=== PATIENT | male | born 1985 | race Caucasian/White ===

== ENCOUNTER → 2021-09-24 | Outpatient (CLI) | payer OTHER ==
--- NOTE | 2021-09-25 12:36 | KCIC ---
Ultrasound soft tissue neck: Reason for examination: Pain in the anterior superior neck to the right of trachea and dysphagia for 2 1/2 years. Ultrasound examination was performed in the area of clinical concern. No focal abnormalities identifi ed in the neck. No adenopathy is seen. IMPRESSION: No focal abnormality seen sonographically in the neck. Electronically signed by: Janice Pleitez MD (09/25/2021 12:34 PM) [id number]
== END ==
LOC: KCIC US 09:34
PROVIDERS: ATTEND Nurse Practitioner Adult Health
DX: M54.2 Cervicalgia (principal); R07.0 Pain in throat; R59.9 Enlarged lymph nodes, unspecified; R00.2 Palpitations
CPT/HCPCS: 76536